=== PATIENT | female | born 1960 | race Caucasian/White ===

== ENCOUNTER 2018-06-29 20:00 | Emergency (ER) | payer OTHER ==
[2018-06-29 20:49] VITALS: BP 124/76; PULSE 108; TEMP 98.1; BMI 24.9
[2018-06-29] MEDS ORDERED: ALPRAZolam 0.25 MG TABLET PO ONE (20:57)
--- NOTE | 2018-06-29 21:00 | PDOC ---
Attending Attestation - Resident Resident Name: Barbara Zacariasjosemanuel - ED Attending Attestation I have performed the following: I have examined & evaluated the patient, The case was reviewed & discussed with the resident, I agree w/resident's findings & plan, Exceptions are as noted - HPI HPI: 06/29/18 20:57 57-year-old female received very upsetting news about her son and started to hyperventilate. Family presents with her requesting some kind of antianxiety medication She did have some transient chest discomfort, but her EKG is normal sinus rhythm and the chest discomfort resolved when she stopped hyperventilating - Physicial Exam PE: 06/29/18 21:00 well nourished well-developed 57-year-old female who is tearful after hearing upsetting news about her son 06/29/18 21:08 Head normocephalic/atraumatic. Neck is supple, no JVD, no bruits. Lungs are clear to auscultation bilaterally CVS regular rate and rhythm S1, S2 Abdomen soft, nontender. Extremities no pitting edema, no erythema. Neuro alert and oriented 3, motor strength 5 out of 5 bilaterally Psych patient is anxious, but answers questions readily and has no gross focal neural deficits. No facial droop, no slurred speak -she has no SI or HI - Medical Decision Making 06/29/18 21:10 IMP situational anxiety
--- NOTE | 2018-06-29 21:07 | PDOC ---
History of Present Illness - General Chief Complaint: Psychiatric Stated Complaint: ANXIETY ATTCAK Time Seen by Provider: 06/29/18 20:28 History Source: Patient, Family Exam Limitations: Clinical Condition, Language Barrier - History of Present Illness Initial Comments: 57F with history of HTN HLD and DM presents to the hospital after she was having a "difficult conversation" with her son and then she started to hyperventilate dry heave and have chest pain. Once she started to calm down her chest pain subsided. She denies nausea Past History - Past Medical History Allergies/Adverse Reactions: Allergies No Known Allergies Allergy (Verified 06/29/18 20:35) Home Medications: Ambulatory Orders Metformin HCl [Metformin HCl ER] 1,000 mg PO DAILY 04/02/16 Atorvastatin Ca [Lipitor] mg PO HS 06/29/18 Enalapril Maleate [Vasotec] mg PO ASDIR 06/29/18 Metoprolol Succinate [Toprol Xl] mg PO ASDIR 06/29/18 - Social History Smoking Status: Never smoked *Physical Exam - Vital Signs Last Vital Signs Temp Pulse Resp BP Pulse Ox 98.1 F 108 H 18 124/76 98 06/29/18 20:19 06/29/18 20:19 06/29/18 20:19 06/29/18 20:19 06/29/18 20:19 Plan - Order(s) Order(s): Orders Medication Instructions Recorded Atorvastatin Ca [Lipitor] mg PO HS 06/29/18 Enalapril Maleate [Vasotec] mg PO ASDIR 06/29/18 Metoprolol Succinate [Toprol Xl] mg PO ASDIR 06/29/18 Orders last 12 hours Category Date Time Status EKG [ELECTROCARDIOGRAM] [CARD] Stat Cardiology 06/29/18 20:32 Ordered *DC/Admit/Observation/Transfer - Referrals Referrals: Silverio Rivers [Primary Care Provider] - - Patient Instructions - Post Discharge Activity
[2018-06-29] MEDS ORDERED: ALPRAZolam 0.25 MG TABLET ONE (21:10)
--- NOTE | 2018-06-29 21:13 | PDOC ---
History of Present Illness - General Chief Complaint: Psychiatric Stated Complaint: ANXIETY ATTCAK Time Seen by Provider: 06/29/18 20:28 History Source: Patient, Family Exam Limitations: Clinical Condition, Language Barrier - History of Present Illness Initial Comments: 06/29/18 57F with history of HTN HLD and DM presents to the hospital after she was having a "difficult conversation" with her son and then she started to hyperventilate dry heave and have chest pain. Once she started to calm down her chest pain subsided. She denies nausea vomiting fevers chills chest pain at this time or shrotness of breath. She denies urinary or GI symptoms. Past History - Travel Traveled outside of the country in the last 30 days: No Close contact w/someone who was outside of country & ill: No - Past Medical History Allergies/Adverse Reactions: Allergies Allergy/AdvReac Type Severity Reaction Status Date / Time No Known Allergies Allergy Verified 06/29/18 20:35 Home Medications: Ambulatory Orders Metformin HCl [Metformin HCl ER] 1,000 mg PO DAILY 04/02/16 Atorvastatin Ca [Lipitor] mg PO HS 06/29/18 Enalapril Maleate [Vasotec] mg PO ASDIR 06/29/18 Metoprolol Succinate [Toprol Xl] mg PO ASDIR 06/29/18 COPD: No Diabetes: Yes HTN: Yes Hypercholesterolemia: Yes - Surgical History Appendectomy: Yes Gastric Stapling: Yes (GASTRIC SLEEVE) - Suicide/Smoking/Psychosocial Hx Smoking History: Never smoked Hx Alcohol Use: No Drug/Substance Use Hx: No Substance Use Type: None Review of Systems - Review of Systems Constitutional: No: Symptoms Reported, See HPI, Chills, Diaphoresis, Fever, Loss of Appetite, Malaise, Night Sweats, Weakness, Weight Stable, Unintentional Wgt. Loss, Unexplained wgt Loss, Other HEENTM: No: Symptoms Reported, See HPI, Eye Pain, Blurred Vision, Tearing, Recent change in vision, Double Vision, Cataracts, Ear Pain, Ocular Prothesis, Ear Discharge, Nose Pain, Nose Congestion, Tinnitus, Nose Bleeding, Hearing Loss , Throat Pain, Throat Swelling, Mouth Pain, Dental Problems, Difficulty Swallowing, Mouth Swelling, Other Respiratory: No: Symptoms reported, See HPI, Cough, Orthopnea, Shortness of Breath, SOB with Exertion, SOB at Rest, Stridor, Wheezing, Productive cough, Hemoptysis, Other Cardiac (ROS): Yes: Chest Pain, Palpitations ABD/GI: Yes: Other (dry heaving that has subsided) : No: Symptoms Reported, See HPI, Burning, Dysuria, Discharge, Frequency, Flank Pain, Hematuria, Incontinence, Pain, Urgency, Testicular Mass, Testicular Swelling, Lesions, Testicular Pain, Other Musculoskeletal: No: Symptoms Reported, See HPI, Back Pain, Gout, Joint Pain, Joint Swelling, Muscle Pain, Muscle Weakness, Neck Pain, Joint Stiffness, Other Integumentary: No: Symptoms Reported, See HPI, Bruising, Change in Color, Change in Hair/Nails, Dryness, Erythema, Flushing, Lesions, Lumps, Pallor, Pruritus, Rash, Sweating, Other Psychiatric: Yes: Anxiety, Stressors *Physical Exam - Vital Signs Last Vital Signs Temp Pulse Resp BP Pulse Ox 98.1 F 108 H 18 124/76 98 06/29/18 20:19 06/29/18 20:19 06/29/18 20:19 06/29/18 20:19 06/29/18 20:19 - Physical Exam General Appearance: Yes: Nourished, Appropriately Dressed, Other. No: Apparent Distress HEENT: positive: ARLEN, Normal Voice Neck: positive: Trachea midline, Supple Respiratory/Chest: positive: Lungs Clear, Normal Breath Sounds. negative: Chest Tender Cardiovascular: positive: Regular Rhythm, Regular Rate Musculoskeletal: negative: CVA Tenderness Extremity: positive: Normal Capillary Refill Integumentary: positive: Dry, Warm Neurologic: positive: Fully Oriented, Alert Heart Score/ECG Review - ECG Impressions Comment:: NSR @ 93 Medical Decision Making - Medical Decision Making 06/29/18 21:13 57F with multiple medical problems presents with chest pain due to situational anxiety which has since resolved. EKG NSR Xanax 0.25mg po given Patient can be discharged *DC/Admit/Observation/Transfer Diagnosis at time of Disposition: Anxiety as acute reaction to exceptional stress - Discharge Dispostion Disposition: HOME Condition at time of disposition: Good Decision to Admit order: No - Referrals Referrals: Silverio Rivers [Primary Care Provider] - 3 days - Patient Instructions Printed Discharge Instructions: DI for Anxiety -- Adult, Yoga May Help Reduce Anxiety and Stress Additional Instructions: if you have any worsening of your symptoms please go to the nearest emergency room right away. try to keep your stress level low. see your primary care doctor as soon as possible - Post Discharge Activity
--- NOTE | 2018-06-30 11:46 | EKG ---
Test Reason : Blood Pressure : / mmHG Vent. Rate : 093 BPM Atrial Rate : 093 BPM P-R Int : 128 ms QRS Dur : 082 ms QT Int : 334 ms P-R-T Axes : 047 005 006 degrees QTc Int : 415 ms NORMAL SINUS RHYTHM NONSPECIFIC T WAVE ABNORMALITY ABNORMAL ECG WHEN COMPARED WITH ECG OF 03-DEC-2004 21:46, NO SIGNIFICANT CHANGE WAS FOUND Confirmed by ELSA CERVANTES MD ([id number]) on 06/30/2018 11:46:38 AM Referred By: Confirmed By:ELSA CERVANTES MD
== END 2018-06-29 21:51 | disposition home or self-care (01) ==
LOC: JER 20:00
DX: F41.1 Generalized anxiety disorder (principal); F43.0 Acute stress reaction; Z98.84 Bariatric surgery status; I10 Essential (primary) hypertension; E78.00 Pure hypercholesterolemia, unspecified; E11.9 Type 2 diabetes mellitus without complications
CPT/HCPCS: 93005; 93010; 99282-25

== ENCOUNTER 2019-08-28 14:12 | Emergency (ER) | payer OTHER ==
--- NOTE | 2019-08-28 14:18 | PDOC ---
Rapid Medical Evaluation Time Seen by Provider: 08/28/19 14:16 Medical Evaluation: Allergies Allergy/AdvReac Type Severity Reaction Status Date / Time No Known Allergies Allergy Verified 06/29/18 20:35 08/28/19 14:16 I have performed a brief in-person evaluation of this patient. The patient presents with a chief complaint of: Facial numbness and tingling s/ p parathyroidectomy on Saturday by Dr. Jarrett. I have ordered the following: CBC, CMP to check lytes (calcium) The patient will proceed to the ED for further evaluation. Discharge Disposition - Diagnosis Facial numbness - Referrals - Patient Instructions - Post Discharge Activity
[2019-08-28 14:23] VITALS: BMI 24.9
--- NOTE | 2019-08-28 14:31 | PDOC ---
History of Present Illness - General Chief Complaint: Head/Neck problem Stated Complaint: ABNORMAL LABS Time Seen by Provider: 08/28/19 14:16 - History of Present Illness Initial Comments: The pt is a 59F w/ a history of HTN, HLD, DM s/p parathyroidectomy on 11/26/18 (2 days ago) for possible R lower parathyroid adenoma who presents for evaluation of facial tingling and twitching concerning for hypocalcemia. The pt called the surgeon's office, Dr. Jarrett, and was told to presents for evaluation. The pt denies any other associated symptoms including changes in sensation, constipation, muscle cramps. She denies any fever, increased incisional pain or drainage. 08/28/19 14:48 Past History - Past Medical History Allergies/Adverse Reactions: Allergies Allergy/AdvReac Type Severity Reaction Status Date / Time No Known Allergies Allergy Verified 08/28/19 14:17 Home Medications: Ambulatory Orders Atorvastatin Calcium 80 mg PO HS 08/28/19 Calcium 250Mg/Vit-D 125 Units [Oscal 250 mg+D -] 1 combo PO BID #60 tablet 08/28 Cholecalciferol (Vitamin D3) [Vitamin D3] 2,000 unit PO DAILY 08/28/19 Guaifenesin [Mucinex -] 600 mg PO BID #14 tablet.er 08/28/19 Liraglutide [Victoza -] 18 mcg IM ASDIR 08/28/19 Metformin HCl [Glucophage] 1,000 mg PO DAILY 08/28/19 Metoprolol Succinate [Toprol Xl] 50 mg PO DAILY 08/28/19 Ondansetron [Zofran *Odt*] 4 mg SL TID PRN 08/28/19 Ramipril 2.5 mg PO DAILY 08/28/19 COPD: No Diabetes: Yes HTN: Yes Hypercholesterolemia: Yes - Surgical History Appendectomy: Yes Gastric Stapling: Yes (GASTRIC SLEEVE) - Psycho Social/Smoking Cessation Hx Smoking History: Never smoked Hx Alcohol Use: No Drug/Substance Use Hx: No Substance Use Type: None Review of Systems - Review of Systems Able to Perform ROS?: Yes Comments:: GENERAL/CONSTITUTIONAL: No fever or chills. No weakness HEAD, EYES, EARS, NOSE AND THROAT: No change in vision. No change in hearing. No sore throat CARDIOVASCULAR: No chest pain or shortness of breath RESPIRATORY: Denies cough, hemoptysis GASTROINTESTINAL: No nausea, vomiting, diarrhea or constipation GENITOURINARY: No dysuria, frequency, or change in urination MUSCULOSKELETAL: No joint or muscle swelling or pain. No neck or back pain SKIN: No rash NEUROLOGIC: +facial tingling and twitching; No headache, vertigo, loss of consciousness ENDOCRINE: No increased thirst. No abnormal weight change HEMATOLOGIC/LYMPHATIC: No anemia, easy bleeding, or history of blood clots ALLERGIC/IMMUNOLOGIC: No hives or skin allergy 08/28/19 14:31 Is the patient limited Chinese proficient: No *Physical Exam - Vital Signs Last Vital Signs Temp Pulse Resp BP Pulse Ox 98.2 F 108 H 18 136/80 96 08/28/19 14:14 08/28/19 14:14 08/28/19 14:14 08/28/19 14:14 08/28/19 14:14 - Physical Exam Comments: GENERAL: Awake, alert, and oriented to person/place/time, in no acute distress HEAD: No signs of trauma, normocephalic, atraumatic EYES: PERRLA, EOMI, sclera anicteric, conjunctiva clear ENT: Hearing grossly normal, nares patent, oropharynx clear without exudates. Moist mucosa LUNGS: No distress, speaks in full sentences, clear to auscultation bilaterally HEART: Regular rate and rhythm, normal S1 and S2, no murmurs appreciated, peripheral pulses normal and equal bilaterally ABDOMEN: Soft, nontender, normoactive bowel sounds. No guarding, no rebound EXTREMITIES: Normal inspection, Normal range of motion, no edema. No clubbing or cyanosis NEUROLOGICAL: Cranial nerves II through XII grossly intact. Normal speech, normal gait, no focal sensorimotor deficits. Patellar and achilles reflexes brisk w/o clonus. Chvostek's neg. SKIN: Warm, Dry 08/28/19 14:31 ED Treatment Course - LABORATORY CBC & Chemistry Diagram: 08/28/19 14:28 08/28/19 14:28 Medical Decision Making - Medical Decision Making The pt is a 59F w/ a history of HTN, HLD, and recent parathyroidectomy 2 days ago who presents for facial tingling and twitching likely 2/2 hypocalcemia. Pt not currently on calcium supplementation No anemia No leukcytosis Ca 8.4 -ionized is a send out Remainder of lytes unremarkable Mg 1.7 Phos wnl 08/28/19 15:26 Pt discussed w/ Dr. Jarrett who will see pt on Saturday and recommends OsCal BID Rx for mucinex also sent to pt's pharmacy Plan for D/C w/ Surgery f/u Discharge instructions and return precautions given Pt in agreement and verbalized understanding Dispo: home 08/28/19 16:15 Discharge - Discharge Information Problems reviewed: Yes Clinical Impression/Diagnosis: Facial tingling, Facial twitching, Hypokalemia Condition: Stable Disposition: HOME - Admission No - Additional Discharge Information Prescriptions: Calcium 250Mg/Vit-D 125 Units [Oscal 250 mg+D -] 1 combo PO BID #60 tablet Guaifenesin [Mucinex -] 600 mg PO BID #14 tablet.er - Follow up/Referral Referrals: Ryland Wise [Primary Care Provider] - Abi Jarrett MD [Staff Physician] - - Patient Discharge Instructions Patient Printed Discharge Instructions: DI for Hypocalcemia Additional Instructions: You were seen in the Emergency Department for evaluation of facial tingling and twitching. Your calcium was mildly low at 8.4. A prescription for calcium supplementation was sent to your pharmacy, take twice a day. A prescription was also sent for mucinex for your congestion. Review the handout provided at discharge. Follow up with Dr. Jarrett Saturday. Return to the Emergency Department if you develop fevers/chills, worsening symptoms, twitching, muscle spasms, confusion, chest pain, or any new/concerning symptoms. - Post Discharge Activity
[2019-08-28 14:41] LABS: BASO % 1.4 % (0-2.0); EOS % 1.1 % (0-4.5); HEMATOCRIT 38.9 % (32.4-45.2); HEMOGLOBIN 12.9 GM/dL (10.7-15.3); LYMPH % 30.1 % (8-40); MCH 27.7 pg (25.7-33.7); MCHC 33.3 g/dl (32.0-36.0); MEAN CELL VOLUME 83.1 fl (80-96); MEAN PLT VOLUME 8.3 fl (7.5-11.1); MONO % 9.6 % (3.8-10.2); NEUT % 57.8 % (42.8-82.8); PLATELET COUNT 200 K/MM3 (134-434); RBC 4.68 M/mm3 (3.60-5.2); RDW 14.2 % (11.6-15.6)
--- NOTE | 2019-08-28 14:42 | PDOC ---
Attending Attestation - Resident Resident Name: Jose Manuel Mckee - ED Attending Attestation I have performed the following: I have examined & evaluated the patient, The case was reviewed & discussed with the resident, I agree w/resident's findings & plan, Exceptions are as noted - HPI HPI: 08/28/19 15:38 Tosha is a 59 yo F h/o right parathyroid adenoma s/p parathyroidectomy two days ago PT was discharged to home yesterday Pt reports today having facial numbness and tingling Also, she noted neck pain since surgery no numbness or tingling in any other location (arms or legs) No shortness of breath - Physicial Exam PE: 08/28/19 15:36 GENERAL: The patient is in no acute distress. ENT: Ears normal, nares patent, oropharynx clear without exudates. Moist mucous membranes. NECK: Normal range of motion, supple, no nuchal rigidity LUNGS: Breath sounds equal, clear to auscultation bilaterally. No wheezes, and no crackles. HEART:Regular rate and rhythm, normal S1 and S2 without murmur, rub or gallop. ABDOMEN: Soft, nontender, normoactive bowel sounds. EXTREMITIES: Normal range of motion, no edema. NEUROLOGICAL: Cranial nerves II through XII grossly intact. Normal speech. No focal neurological deficits. chvostek sign trousseau signs negative SKIN: Warm, Dry, normal turgor, no rashes or lesions noted. 08/28/19 15:48 - Medical Decision Making 08/28/19 15:49 59 yo F preesnting with facial tingling s/p parathyroidectomy 08/28/19 15:51 Laboratory Tests 08/28/19 14:28 BUN 9.8 Creatinine 0.7 Calcium 8.4 L Albumin 3.3 L Corrected Calcium = 9 The ionized calcium is a send out test Call placed to Dr Jarrett re: symptoms Tramadol 25mg ordered 08/28/19 16:[address] Jarrett Recommends OScal 1 tab BID and Follow up on Saturday Discharge - Discharge Information Problems reviewed: Yes Clinical Impression/Diagnosis: Facial tingling, Facial twitching, Hypokalemia Condition: Stable Disposition: HOME - Admission No - Additional Discharge Information Prescriptions: Calcium 250Mg/Vit-D 125 Units [Oscal 250 mg+D -] 1 combo PO BID #60 tablet Guaifenesin [Mucinex -] 600 mg PO BID #14 tablet.er - Follow up/Referral Referrals: Ryland Wise [Primary Care Provider] - Abi Jarrett MD [Staff Physician] - - Patient Discharge Instructions Patient Printed Discharge Instructions: DI for Hypocalcemia Additional Instructions: Ms. Quick Thank you for coming in to the ER today Please take either tylenol or Tramdol for pain Please start taking Oscal two times each day Dr Jarrett is expecting to see you on Saturday Return to the ER for any other concerns or complaints (especially if you have more signs that your calcium is low) - Post Discharge Activity
[2019-08-28 15:07] LABS: ALBUMIN 3.3 g/dl (3.4-5.0); BILIRUBIN,TOTAL 0.7 mg/dL (0.2-1); BLOOD UREA NITROGEN 9.8 mg/dL (7-18); CALCIUM 8.4 mg/dL (8.5-10.1); CREATININE 0.7 mg/dL (0.55-1.3); MAGNESIUM 1.7 mg/dL (1.8-2.4); PHOSPHOROUS 3.5 mg/dL (2.5-4.9); POTASSIUM 3.7 mmol/L (3.5-5.1); TOT PROT 6.5 g/dl (6.4-8.2)
[2019-08-28] MEDS ORDERED: traMADol HCL 50 MG TABLET PO ONE ×2 (15:37)
[2019-08-28] MEDS ORDERED: traMADol HCL 50 MG TABLET ONE (15:50)
[2019-08-28] MEDS ORDERED: CALCIUM 250MG/VIT-D 125 UNITS 1 COMBO TABLET PO SCH (16:15)
[2019-08-28 16:40] VITALS: BP 126/78; PULSE 95; TEMP 98.6
== END 2019-08-28 16:40 | disposition home or self-care (01) ==
LOC: JER 14:12
DX: E87.6 Hypokalemia (principal); G51.4 Facial myokymia; R20.2 Paresthesia of skin; E89.0 Postprocedural hypothyroidism; I10 Essential (primary) hypertension; E78.5 Hyperlipidemia, unspecified; E11.9 Type 2 diabetes mellitus without complications; Z79.84 Long term (current) use of oral hypoglycemic drugs
CPT/HCPCS: 36415; 80053; 83735; 84100; 85025; 99284-25

== ENCOUNTER 2020-12-25 17:47 | Emergency (ER) | payer OTHER ==
[2020-12-25 17:55] VITALS: TEMP 97; BMI 34.3
[2020-12-25 19:03] LABS: VENOUS BASE EXCESS -1.9 mmol/L (-2-2); VENOUS O2 SATURATION 88.3 % (70-80); VENOUS PCO2 35.3 mmHg (38-52); VENOUS PH 7.413 (7.310-7.410)
[2020-12-25 19:12] LABS: EOS % 0.3 % (0-4.5); HEMATOCRIT 40.4 % (32.4-45.2); HEMOGLOBIN 13.2 GM/dL (10.7-15.3); LYMPH % 28.2 % (8-40); MCH 26.4 pg (25.7-33.7); MCHC 32.6 g/dl (32.0-36.0); MEAN CELL VOLUME 81.1 fl (80-96); MONO % 8.4 % (3.8-10.2); NEUT % 62.1 % (42.8-82.8); PLATELET COUNT 424 K/MM3 (134-434); RBC 4.98 M/mm3 (3.60-5.2); RDW 14.4 % (11.6-15.6); WHITE BLOOD COUNT 13.9 K/mm3 (4.0-10.0)
[2020-12-25 19:24] LABS: CHLORIDE 105 mmol/L (98-107); POTASSIUM 3.7 mmol/L (3.5-5.1); SODIUM 141 mmol/L (136-145)
[2020-12-25 19:25] LABS: ALBUMIN 3.5 g/dl (3.4-5.0); ANION GAP 11 MMOL/L (8-16); CALCIUM 9.6 mg/dL (8.5-10.1); CO2 25 mmol/L (21-32)
[2020-12-25 19:27] LABS: GLUCOSE,RANDOM 114 mg/dL (74-106)
[2020-12-25 19:29] LABS: SGOT/AST 47 U/L (15-37); SGPT/ALT 57 U/L (13-61)
[2020-12-25 19:30] LABS: CREATININE 0.9 mg/dL (0.55-1.3)
[2020-12-25 19:31] LABS: BILIRUBIN,TOTAL 0.5 mg/dL (0.2-1); TOT PROT 7.4 g/dl (6.4-8.2)
[2020-12-25 19:32] LABS: ALK PHOS 74 U/L (45-117)
[2020-12-25 21:33] VITALS: BP 143/78; PULSE 78
== END 2020-12-25 21:30 | disposition home or self-care (01) ==
LOC: JER 17:47
DX: T58.91XA Toxic effect of carbon monoxide from unspecified source, accidental (unintentional), initial encounter (principal)
CPT/HCPCS: 36415; 80053; 82375; 82803; 84484; 85025; 93005; 93010; 99284-25